=== PATIENT | male | born 1980 | race Caucasian/White ===

== ENCOUNTER 2022-11-19 06:40 | Inpatient (IN) | payer MEDICAID ==
[2022-11-11 14:42] LABS: BASOPHILS # (AUTO) 0.2 X10'3 (0-0.2); BASOPHILS % (AUTO) 1.4 % (0-1); EOSINOPHILS # (AUTO) 0.5 X10'3 (0-0.9); EOSINOPHILS % (AUTO) 4.5 % (0-6); LYMPHOCYTES # (AUTO) 2.1 X10'3 (1.1-4.8); LYMPHOCYTES % (AUTO) 19.2 % (21-51); MEAN CORPUSCULAR HEMOGLOBIN 31.2 PG (27.0-31.0); MEAN CORPUSCULAR HGB CONC 33.7 g/dL (33.0-36.5); MEAN CORPUSCULAR VOLUME 92.5 FL (78-98); MEAN PLATELET VOLUME 7.1 FL (7.4-10.4); MONOCYTES # (AUTO) 1.2 X10'3 (0-0.9); MONOCYTES % (AUTO) 11.4 % (2-12); NEUTROPHILS # (AUTO) 6.8 X10'3 (1.8-7.7); NEUTROPHILS % (AUTO) 63.5 % (42-75); PRE OP HEMATOCRIT 46.4 % (42.0-52.0); PRE OP HEMOGLOBIN 15.6 g/dL (14.0-17.9); PRE OP PLATELET COUNT 385 X10'3 (140-440); RED BLOOD COUNT 5.01 X10'6 (4.70-6.10)
[2022-11-11 14:56] LABS: ALBUMIN 3.6 G/DL (3.4-5.0); ALKALINE PHOSPHATASE 106 IU/L (46-116); BLOOD UREA NITROGEN 13 MG/DL (7-18); BUN/CREATININE RATIO 13.4 (5.4-32.0); CALCIUM 8.8 MG/DL (8.5-10.1); CHLORIDE 98 MMOL/L (99-107); CREATININE 0.97 MG/DL (0.60-1.10); PRE OP ALT 32 U/L (30-65); PRE OP ANION GAP 9 (8-16); PRE OP AST 23 U/L (10-37); PRE OP BILIRUB, TOTAL 0.4 MG/DL (0.0-1.0); PRE OP GLUCOSE 100 MG/DL (70-104); PRE OP SODIUM 135 MMOL/L (135-145); TOTAL CARBON DIOXIDE 28.1 MMOL/L (24-32); TOTAL PROTEIN 7.1 G/DL (6.4-8.2); eGFR 85 ML/MIN
[~2022-11-19] VITALS: Ht 180.3 cm; Wt 79.2 kg
[2022-11-19] VITALS (26 sets, daily range): BP systolic 101–163; BP diastolic 66–99
[~2022-11-19 06:40] MED LIST: ASPI-1071 PO; ENZYME PO; IBUP-1984 PO; LACT1CAP75 PO; MULT-1085 PO; VITA1TAB20 PO; VITAMIN C PO; acetaminophen 325mg tablet PO ONE; ceFAZolin inj. 2,000 MG in dextrose 5%-water 100 ML IV ONE; celeCOXIB 100mg capsule PO ONE; famotidine 20mg tablet PO ONE; gabapentin 300mg capsule PO ONE; metoclopramide 5 mg/ml inj IV ONE; oxyCODONE SR 10mg (sust. release) tab -2 tabs (20mg) PO ONE; ringers solution, lacted 1,000 ML IV SCH; tranexamic acid inj. 1,000 MG in normal saline IV soln 100ML IV ONE; vancomycin 1,500 MG in NS 300ml IV soln IV ONE
[2022-11-19] MEDS ORDERED: HYDROcodone/acetaminophen 10/325mg tab PO PRN (07:10)
[2022-11-19] MEDS ORDERED: magnesium hydroxide 30ml (MOM) UD suspension PO PRN (07:10)
[2022-11-19] MEDS ORDERED: HYDROmorphone inj. 0.5 MG/0.5 ML DISP.SYRIN IV PRN (07:10)
[2022-11-19] MEDS ORDERED: naloxone 0.4 mg/ml inj IV PRN (07:10)
[2022-11-19] MEDS ORDERED: diphenhydrAMINE 25mg capsule PO PRN ×2 (07:10)
[2022-11-19] MEDS ORDERED: acetaminophen 325mg tablet PO PRN (07:10)
[2022-11-19] MEDS ORDERED: HYDROmorphone 1 mg/ml syringe IV PRN (07:10)
[2022-11-19] MEDS ORDERED: ondansetron/PF 4mg/2ml inj IV PRN ×2 (07:10→11:35)
[2022-11-19] MEDS ORDERED: bisacodyl 10mg suppository rectal RC PRN (07:10)
--- NOTE | 2022-11-19 07:20 | NUR ---
PREPARED PT FOR SURGERY OF LEFT HIP PT ARRIVED IN AMBULATORY, PAINFUL GAIT. IV STARTED WITHOUT DIFFICULTY . DR GAVIN BEDSIDE, HIP MARKED. BILATERAL PEDAL PULSES ARE +2 PALPABLE. THEY WERE MARKED. PT STATES HE READ AN INFORMATION PACKET ABOUT THE SURGERY AND DOES NOT HAVE ANY QUESTIONS AT THIS TIME. PT DID NOT USE OINTMENT IN HIS NOSE IT WAS NOT ORDERED BY PHYSICIAN. HE DID USE HIBACLENS SOAP FOR SHOWERING FOR 5 DAYS PRIOR TO SURGERY INCLUDING ON THE DAY OF SURGERY. PT INSTRUCTED ON THE USE OF INCENTIVE SPIROMETRY AND WAS ABLE TO RETURN DEMONSTRATE THE USE OF IT. ALL VALUABLES WERE TAKEN BY PTS MOTHER INCLUDING HIS CELL PHONE. ALL OTHER BELONGINGS TAKEN TO PACU
[2022-11-19] MEDS ORDERED: vancomycin 1,000mg inj ONE (09:17)
[2022-11-19] MEDS ORDERED: ketorolac trometh. 30mg/ml inj. ONE (09:17)
[2022-11-19] MEDS ORDERED: cloNIDine hcl/PF 100mcg/ml inj ONE (09:17)
[2022-11-19] MEDS ORDERED: epiNEPHrine 1 mg/ml inj ONE (09:17)
[2022-11-19] MEDS ORDERED: ROPIVAcaine 0.5% (5mg/ml) 30ml vial ONE (09:18)
[2022-11-19] MEDS ORDERED: FENTANYL CITRATE/PF 50 MCG/1 ML VIAL ONE (09:45)
[2022-11-19] MEDS ORDERED: MIDAZolam 1 MG/ML 5ML VIAL ONE (09:46)
[2022-11-19] MEDS ORDERED: ROPIVAcaine 0.5% (5mg/ml) 30ml vial IJ ONE (10:16)
[2022-11-19] MEDS ORDERED: epiNEPHrine 1 mg/ml inj SQ ONE (10:16)
[2022-11-19] MEDS ORDERED: ketorolac trometh. 30mg/ml inj. IV ONE (10:16)
[2022-11-19] MEDS ORDERED: cloNIDine hcl/PF 100mcg/ml inj EP ONE (10:16)
[2022-11-19] MEDS ORDERED: proCHLORperazine 10 MG/2 ml inj IV PRN (11:35)
[2022-11-19] MEDS ORDERED: meperidine/PF 25mg/ml syringe IV PRN ×3 (11:35)
[2022-11-19] MEDS ORDERED: morphine 2 MG/ML inj. syringe IV PRN (11:35)
[2022-11-19] MEDS ORDERED: ringers solution, lacted 1,000 ML IV SCH (11:35)
[2022-11-19] MEDS ORDERED: morphine 4 MG/ML inj SYRINge IV PRN (11:35)
[2022-11-19] MEDS ORDERED: BUPIVAcaine/PF 7.5mg/ml (0.75%) 10ml vial ONE (11:49)
[2022-11-19] MEDS ORDERED: dexamethasone sod phosphate 4mg/ml inj. ONE (11:49)
--- NOTE | 2022-11-19 11:55 | NUR ---
Received from OR via BED accompanied by Anesthesiologist DR MONTEZ and report given by Anesthesiologist AND VICE PRESIDENT [employer] [employer]. PT DROWSY, DENIES PAIN. LEFT HIP W/ANA DRSG/DRAIN CDI W/GREEN LIGHT ILLUMINATION, LEG BRACE ON, POWDER PACK PLACED. Addendum: 11/19/22 at 1250 by Britany Bose RN Amended: Links added.
[2022-11-19] MEDS ORDERED: tranexamic acid inj. 770 MG in normal saline 100ml IV soln 92.3 ML IV ONE (14:00)
--- NOTE | 2022-11-19 14:25 | NUR ---
Report called to receiving nurse. Transferred via BED, 1 BAG OF Belongings SENT W/PT TO ROOM 355B, BLL, CALL LIGHT GIVEN, SIDE RAILS UP X 2, RECEIVING RN NOTIFIED OF PTS ARRIVAL. PTS MOTHER NOTIFIED OF PTS TRANSFER. Special Issues communicated to receiving nurse. YES. Addendum: 11/19/22 at 1501 by Britany Bose RN Amended: Links added.
[2022-11-19] MEDS: potassium cl 20mEq in 1/2 NS 1,000 ML IV SCH ×3 (15:10→23:10)
[2022-11-19] MEDS ORDERED: LISI20TA28 PO (15:17)
[2022-11-19] MEDS: HYDROcodone/acetaminophen 10/325mg tab PO PRN ×2 (17:36→23:32)
--- NOTE | 2022-11-19 18:30 | NUR ---
Patient in room [facility] 355. I have received report from EDWARD Mcconnell and had the opportunity to ask questions and assume patient care. Addendum: 11/19/22 at 2 by Raj Grimaldo RN Amended: Links added.
[2022-11-19] MEDS: ascorbic acid 500mg tablet PO SCH (19:33)
[2022-11-19] MEDS ORDERED: vancomycin/NS 1 GM ADD-VANTAGE 250 ML IV SCH (20:00)
[2022-11-19] MEDS ORDERED: sennosides 8.6mg tablet PO SCH (21:00)
[2022-11-19] MEDS ORDERED: Melatonin 3mg tablet PO SCH (21:00)
[2022-11-19] MEDS: gabapentin 300mg capsule PO SCH (21:05)
[2022-11-20 03:00] VITALS: BP 146/73
[2022-11-20] MEDS: HYDROcodone/acetaminophen 10/325mg tab PO PRN ×2 (03:34→08:02)
[2022-11-20] MEDS: potassium cl 20mEq in 1/2 NS 1,000 ML IV SCH (03:47)
--- NOTE | 2022-11-20 06:24 | NUR ---
Problems reprioritized. Patient report given, questions answered & plan of care reviewed with EDWARD Syed. Addendum: 11/20/22 at 0625 by Raj Grimaldo RN Amended: Links added.
[2022-11-20 06:30] LABS: BASOPHILS % (AUTO) 0.3 % (0-1); EOSINOPHILS # (AUTO) 0.1 X10'3 (0-0.9); EOSINOPHILS % (AUTO) 0.9 % (0-6); HEMATOCRIT 35.7 % (42.0-52.0); HEMOGLOBIN 12.1 g/dl (14.0-17.9); LYMPHOCYTES # (AUTO) 1.6 X10'3 (1.1-4.8); LYMPHOCYTES % (AUTO) 13.8 % (21-51); MEAN CORPUSCULAR HGB CONC 33.9 g/dL (33.0-36.5); MEAN CORPUSCULAR VOLUME 91.2 FL (78-98); MEAN PLATELET VOLUME 7.5 FL (7.4-10.4); MONOCYTES # (AUTO) 1.4 X10'3 (0-0.9); MONOCYTES % (AUTO) 11.9 % (2-12); NEUTROPHILS # (AUTO) 8.5 X10'3 (1.8-7.7); NEUTROPHILS % (AUTO) 73.1 % (42-75); PLATELET COUNT 273 X10'3 (140-440); RED BLOOD COUNT 3.91 X10'6 (4.70-6.10); RED CELL DISTRIBUTION WIDTH 14.2 % (11.5-14.5); WHITE BLOOD COUNT 11.6 X10'3 (4.5-11.0)
[2022-11-20 06:41] LABS: ANION GAP 4 (8-16); CHLORIDE 102 MMOL/L (99-107); SODIUM 133 MMOL/L (135-145); TOTAL CARBON DIOXIDE 27.3 MMOL/L (24-32)
[2022-11-20 07:13] VITALS: BP 131/87
[2022-11-20] MEDS: ascorbic acid 500mg tablet PO SCH (07:57)
[2022-11-20] MEDS: gabapentin 300mg capsule PO SCH (07:58)
[2022-11-20] MEDS ORDERED: multivitamins, therapeutics tablet PO SCH (08:00)
[2022-11-20] MEDS ORDERED: aspirin 325mg tablet PO SCH (08:30)
--- NOTE | 2022-11-20 10:38 | NUR ---
Patient discharged home with ride from his private vehicle. Patient left with all belongings. Patient expressed verbal understanding of discharge teaching and was educated on his wound care and dressing care. Patient has already got medications from MD. Patient stated he left with all belongings at discharge in private vehicle after IV taken out in room.
--- NOTE | 2022-11-20 11:45 | NUR ---
Joint surgery consult: Pt s/p L hip surgery this admit per EMR. Pt discharged prior to RD visit; written high protein diet ed w/ RD contact information mailed to pt home address provided in EMR. Addendum: 11/20/22 at [address] Amended: Links added.
[2022-11-20] MEDS ORDERED: celeCOXIB 100mg capsule PO SCH (20:00)
== END 2022-11-20 10:08 | disposition home or self-care (01) | DRG 324 ==
LOC: PAS IN 06:40 → SUR 3N 14:31
PROVIDERS: ADMIT Orthopaedic Surgery; ATTEND Orthopaedic Surgery
PROC: 3E0T3BZ Introduction of Anesthetic Agent into Peripheral Nerves and Plexi, Percutaneous Approach (ICD-10-PCS; 2022-11-19)
PROC: 3E0T33Z Introduction of Anti-inflammatory into Peripheral Nerves and Plexi, Percutaneous Approach (ICD-10-PCS; 2022-11-19)
PROC: 0SRB06Z Replacement of Left Hip Joint with Oxidized Zirconium on Polyethylene Synthetic Substitute, Open Approach (ICD-10-PCS; principal; 2022-11-19 09:37)
DX: M16.12 Unilateral primary osteoarthritis, left hip (principal); Z79.82 Long term (current) use of aspirin
CPT/HCPCS: 36415; 72170; 80051; 80053; 82948; 85025; 86885; 86900; 86901; 87081; 97110; 97161; 97530; A4615; A7000; C1776; G0378; J0171; J0690; J0735; J1100; J1170; J1885; J2250; J2765; J2795; J3010; J3370; J3480; J3490; J7040; J7060; J7120; Q0163

== ENCOUNTER 2025-05-24 09:59 | Day surgery (SDC) | payer MEDICAID ==
--- NOTE | 2025-05-21 14:21 | ELECTROCARDIOGRAPH REPORT ---
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 RICCARDO Hare Measurements Intervals [place] Rate: 82 P: 66 DE: 158 QRS: 58 QRSD: 95 T: 53 QT: 381 QTc: 445 Interpretive Statements Sinus rhythm Electronically Signed On 05-21-2025 17:57:[address] RICCARDO Hare Please click the below link to view image of tracing.
[2025-05-21 14:23] LABS: MEAN PLATELET VOLUME 6.9 FL (7.4-10.4); PRE OP HEMATOCRIT 44.1 % (42.0-52.0); PRE OP HEMOGLOBIN 15.0 g/dL (14.0-17.9); PRE OP PLATELET COUNT 384 X10'3 (140-440); PRE OP WHITE BLOOD COUNT 11.9 10'3 (4.8-10.8); RED CELL DISTRIBUTION WIDTH 13.1 % (11.5-14.5)
[2025-05-21 14:38] LABS: CREATININE 1.17 MG/DL (0.60-1.10); PRE OP ALT 34 U/L (30-65); PRE OP ANION GAP 7 (8-16); PRE OP AST 19 U/L (10-37); PRE OP BILIRUB, TOTAL 0.4 MG/DL (0.0-1.0); PRE OP GLUCOSE 76 MG/DL (70-104); PRE OP POTASSIUM 3.9 MMOL/L (3.4-5.1); PRE OP SODIUM 140 MMOL/L (135-145); TOTAL CARBON DIOXIDE 30.1 MMOL/L (24-32); eGFR 67 ML/MIN
[~2025-05-24] VITALS: Ht 180.3 cm; Wt 76.1 kg
[2025-05-24] VITALS (17 sets, daily range): BP systolic 137–167; BP diastolic 90–106; PULSE 72–96; RESP 12–20; TEMP 98.3; O2SAT 95–100
[2025-05-24] MEDS: ceFAZolin 2gm/dext,iso 50mL 50 ML IV ONE (05:30)
[~2025-05-24 09:59] MED LIST changes: -ASPI-1071 PO; -ENZYME PO; -IBUP-1984 PO; -LACT1CAP75 PO; +LISI5TAB22 PO; -MULT-1085 PO; -VITA1TAB20 PO; -VITAMIN C PO; -acetaminophen 325mg tablet PO ONE; -ceFAZolin inj. 2,000 MG in dextrose 5%-water 100 ML IV ONE; -celeCOXIB 100mg capsule PO ONE; -famotidine 20mg tablet PO ONE; -gabapentin 300mg capsule PO ONE; -metoclopramide 5 mg/ml inj IV ONE; -oxyCODONE SR 10mg (sust. release) tab -2 tabs (20mg) PO ONE; -ringers solution, lacted 1,000 ML IV SCH; -tranexamic acid inj. 1,000 MG in normal saline IV soln 100ML IV ONE; -vancomycin 1,500 MG in NS 300ml IV soln IV ONE
[2025-05-24] MEDS: ringers solution, lacted 1,000 ML IV SCH (10:38)
[2025-05-24] MEDS ORDERED: BUPIVAcaine 2.5mg/ml inj 50ml vial (contains preservative) ONE (12:37)
[2025-05-24] MEDS ORDERED: LIDOcaine 1% 30ml preserv. free vial ONE (12:38)
[2025-05-24] MEDS ORDERED: midazolam 1 mg/ML 2ml injection ONE (12:43)
[2025-05-24] MEDS ORDERED: fentaNYL /PF 50mcg/ml 5ml ampule ONE (12:51)
[2025-05-24] MEDS: BUPIVAcaine/PF 2.5 mg/ml (0.25%) 30ml vial IJ ONE (12:51)
[2025-05-24] MEDS ORDERED: hydrALAZINE 20mg/ml inj. IV PRN (12:55)
[2025-05-24] MEDS ORDERED: ringers solution, lacted 1,000 ML IV SCH (12:55)
[2025-05-24] MEDS ORDERED: ondansetron/PF 4mg/2ml inj IV PRN (12:55)
[2025-05-24] MEDS ORDERED: propofol inj 20 ML IV ONE (12:58)
[2025-05-24] MEDS ORDERED: LIDOcaine 2% (20mg/ml) 5ml vial ONE (12:58)
[2025-05-24] MEDS ORDERED: dexamethasone sod phosphate 4mg/ml inj. ONE (12:59)
[2025-05-24] MEDS ORDERED: ondansetron/PF 4mg/2ml inj ONE (12:59)
[2025-05-24] MEDS ORDERED: rocuronium 10mg/ml inj IV ONE (12:59)
[2025-05-24] MEDS ORDERED: glycopyrrolate 0.2mg/ml inj ONE (14:02)
[2025-05-24] MEDS: labetalol 20mg/4ml (5mg/ml) syringe IV PRN (14:12)
[2025-05-24] MEDS: acetaminophen 1,000mg/100ml IV 100 ML IV PRN (14:13)
[2025-05-24] MEDS ORDERED: HYDROcodone/acetaminophen 5mg/325mg tablet PO PRN (14:15)
--- NOTE | 2025-05-24 14:17 | OPERATIVE REPORT ---
Operative Report Providers to CC: DEON TOPETE MD ~ Date of Procedure: May 24, 2025 Pre-Operative Diagnosis: Right inguinal hernia Post-Operative Diagnosis SAME as PRE-Op Procedure Performed Robotic assisted, laparoscopic right inguinal hernia repair with mesh Surgeon: Deon Topete MD FACS Rotating Equipment Specialist None Anesthesiologist: Teresa Grimes Type of Anesthesia: General Findings: Evidence of previous umbilical hernia repair with mesh Evidence of previous left inguinal hernia repair with mesh Large indirect right inguinal hernia Wound class I Complications None Prosthetics\Implants used: Extra-large right inguinal hernia mesh-Dextile Estimated Blood Loss: Minimal Specimen Removed: None Description of Procedure: Patient was brought to the operating room and identified by the nursing staff and the attending physician. Patient was placed supine and general anesthesia was induced. Patient's abdomen was prepped and draped in standard sterile fashion. Preoperative antibiotics were given. Supraumbilical incision was made to allow for standard [place] entry technique. The incision was made slightly above the previous midline surgical scar to avoid the known umbilical hernia mesh. Dissection carried along the superior margin of the hernia mesh and abdomen was entered. Laparoscope was inserted after insufflation. Bilateral, 8.5 mm robotic trochars were placed under laparoscopic guidance following administration of local anesthetic. The da Annamarie robotic arm was docked to the patient and instruments placed intra-abdominally under laparoscopic visualization. The left hemipelvis was examined and showed no evidence of left inguinal hernia, however, there was evidence of previous preperitoneal repair. An indirect hernia was identified on the right side. Hernia sac was moderate in size. A rent was created in the peritoneum from the median umbilical fold and carried out laterally towards the anterior superior iliac spine. Preperitoneal flap was created and carried down to the symphysis pubis. The retropubic space of Retzius was developed and the bladder swept medially. Dissection was carried out laterally until an indirect hernia sac was identified. This was moderate-large in size. Hernia sac was completely dissected away from the cord structures and reduced. The critical view of the myopectineal orifice was achieved. Dissection was carried out laterally to allow space for mesh deployment. An extra- large, Dextile mesh and suture was passed intra-abdominally. Mesh was laid in the preperitoneal space covering both indirect, direct, and potential femoral and obturator hernias. Mesh laid without wrinkles or folds. 3 tacking sutures using 0 Ethibond were used to fix the mesh at the symphysis pubis, rectus abdominis, and just anterior to the anterior superior iliac spine. The peritoneal rent was then closed with running, 2/0, absorbable locking suture. [place] were retrieved. Abdomen was deflated and secondary trochars removed. Fascia at the umbilical port site was closed with 0 Vicryl sutures. Skin incisions were closed with 4-0 Monocryl sutures in a subcuticular fashion. Sterile dressings were applied. Patient was awakened and taken to the postanesthesia care unit in stable condition. Counts repoted as correct: Yes DEON TOPETE MD May 24, 2025 14:17
[2025-05-24] MEDS: morphine 4 MG/ML inj SYRINge IV PRN (14:57)
[2025-05-24] MEDS: HYDROmorphone/PF 0.2 MG/ML SYRINGE IV PRN ×2 (15:13→15:30)
== END 2025-05-24 15:37 | disposition home or self-care (01) ==
LOC: PRE-OP 09:59 → PAS 15:37
PROVIDERS: ATTEND Surgery
DX: K40.90 Unilateral inguinal hernia, without obstruction or gangrene, not specified as recurrent (principal); I10 Essential (primary) hypertension; Z79.899 Other long term (current) drug therapy
CPT/HCPCS: 36415; 49650; 80053; 82948; 85025; 93005; C1781; J0131; J1100; J1171; J2003; J2250; J2270; J2405; J2704; J2710; J3010; J3490; J7030; J7120; Z7506; Z7508; Z7512; A4215; A4618